=== PATIENT | female | born 1995 | race Caucasian/White ===

== ENCOUNTER 2018-07-01 13:35 | Outpatient (CLI) | payer OTHER ==
[~2018-07-01] VITALS: Ht 157.5 cm; Wt 85.4 kg
[2018-07-01 14:06] VITALS: Ht 157.5 cm; Wt 85.4 kg
[2018-07-01] MEDS ORDERED: PNV11TAB PO (14:06)
[2018-07-01 14:07] VITALS: BP 116/66; PULSE 90; RESP 19
--- NOTE | 2018-07-01 16:47 | TRIAGE ---
OB Triage Datetime Report Generated by CPN: 07/01/2018 16:47 Datetime: 07/01/2018 15:56 Labor Evaluation Frequency: irreg Monitor Mode: External Duration (sec)2399: 50-80 Quality: Mild Pattern: Normal: <= 5 Contractions in 10 Minutes Resting Tone [place]: Relaxed Heart Rate FHR Baseline Rate: 130 Monitor Mode: External US FHR Baseline Changes: No Baseline Change Variability: Moderate 6-25 bpm Accelerations: 15X15 Decelerations: None Category: Category I Datetime: 07/01/2018 14:32 Vaginal Exam Dilatation (cms): 0.0 Effacement (%): 0 Station: -3 Exam By: Epifanio GRADY Datetime: 07/01/2018 14:18 Labor Evaluation Frequency: OCCAS Monitor Mode: External Duration (sec)2399: 100 Quality: Mild Pattern: Normal: <= 5 Contractions in 10 Minutes Resting Tone [place]: Relaxed Heart Rate FHR Baseline Rate: 140 Monitor Mode: External US Variability: Moderate 6-25 bpm Accelerations: 15X15 Decelerations: None Category: Category I Datetime: 07/01/2018 14:17 Assessment Type: Triage Maternal Assessment Level of Consciousness: Fully Conscious DTR's/Clonus: DTRs 2+; No Clonus Headache: Denies Blurred Vision: No Respiratory Effort: Unlabored; Regular Rhythm; Equal Expansion Breath Sounds, Left: Clear and Equal Breath Sounds, Right: Clear and Equal Nausea/Vomiting: Denies RUQ Epigastric Pain: Denies Lower Extremities Edema: None Degree: None Upper Extremities Edema: None Degree: None Facial Edema: None Fall Risk Assessment History of Falling: (0) No Secondary Diagnosis: (0) No Ambulatory Aid: (0) Bedrest/Nurse Assist IV Therapy: (0) No Gait: (0) Normal/Bedrest/Immobile Mental Status: (0) Oriented to Own Ability Fall Score: 0 Fall Risk Score Definition: No Risk: No action required Datetime: 07/01/2018 14:16 EGA: 38.2 Datetime: 07/01/2018 14:15 Time of Arrival: 07/01/2018 13:27 Arrived By: Ambulatory Arrived From: Home Chief Complaint: UC'S Movement: Present Contractions: Irregular Time Contractions Began: 07/01/2018 00:00 Rupture of Membranes: Denies Vaginal Bleeding: None Vaginal Discharge: Denies Recent Sexual Intercouse: Denies Abdominal Trauma: Not Applicable Patient Complaints: Contractions; Cramping Time Provider Notified: 07/01/2018 15:25 Provider Notified: DR MENDOZA Initial Plan: NST BPP EFW AND ROM+
--- NOTE | 2018-07-01 19:38 | PN ---
Triage Information Date/Time 07/01/2018 Reason for visit: Weeks of Gestation 38 weeks and 2 days /Para 1 para 0 Diabetes: none Hypertention: none Additional information 22-year-old G1, P0 with IUP at 38 weeks and 2 days presented with complaint of leaking of fluid denies any contractions or vaginal bleeding. Denies any complication during her course. Objective Vital Signs Date Temp Pulse Resp B/P (MAP) Pulse Ox O2 O2 Flow FiO2 Time Delivery Rate 07/01/18 98.5 90 19 116/66 Room Air 14:07 (83) Heart Rate: 130's Heart Rate Comments Category 1 Contractions: None Exam General appearance: Alert and oriented x4 does not appear to be in any acute distress Abdomen: Soft, gravid, fundal height consider gestational age NST: Category 1 BPP: 8/8 ROSALINO: 12.2 Estimated weight: 3818.2 Results/Medications Results 24 hrs Laboratory Tests Test 07/01/18 14:30 Membranes Rupture NEGATIVE Disposition: Discharge Assessment/Plan IUP at 38 weeks and 2 days No evidence of premature rupture membrane No evidence of labor NST: reactive, BPP reassuring, NST for the most part reassuring. DC home Follow up in 2 days for repeat NST. SHIRA CAVANAUGH MD July 01, 2018 19:38
== END 2018-07-01 16:38 | disposition home or self-care (01) ==
LOC: OBT 13:35 → L-D 13:36 → OBT 16:38
PROVIDERS: ATTEND Obstetrics & Gynecology
DX: O42.92 Full-term premature rupture of membranes, unspecified as to length of time between rupture and onset of labor (principal); Z3A.38 38 weeks gestation of pregnancy
CPT/HCPCS: 76815; 76818; 84112; Z7500; G0463

== ENCOUNTER 2018-07-03 15:50 | Outpatient (CLI) | payer OTHER ==
[~2018-07-03] VITALS: Ht 157.5 cm; Wt 86.9 kg
[~2018-07-03 15:50] MED LIST: PNV11TAB PO
[2018-07-03 15:54] VITALS: Ht 157.5 cm; Wt 86.9 kg
[2018-07-03 15:55] VITALS: BP 135/71
--- NOTE | 2018-07-03 17:44 | TRIAGE ---
OB Triage Datetime Report Generated by CPN: 07/03/2018 17:44 Datetime: 07/03/2018 17:29 Time of Arrival: 07/03/2018 15:40 EGA: 38.4 Arrived By: Ambulatory Arrived From: Home Chief Complaint: nsat bpp f/up Movement: Present Contractions: Denies/Absent Rupture of Membranes: Denies Vaginal Bleeding: None Vaginal Discharge: Denies Recent Sexual Intercouse: Denies Abdominal Trauma: Not Applicable Patient Complaints: None Time Provider Notified: 07/03/2018 17:30 Provider Notified: dr. price Initial Plan: nst bpp Datetime: 07/03/2018 16:36 Vaginal Exam Dilatation (cms): 1.0 Effacement (%): 60 Station: -3 Exam By: Kristopher PAUL Datetime: 07/03/2018 16:20 Comments: back on monitor Datetime: 07/03/2018 16:13 Comments: us at bedside Datetime: 07/03/2018 16:00 Stage of : OB Triage Assessment Type: Triage Maternal Assessment Level of Consciousness: Fully Conscious DTR's/Clonus: DTRs 2+; No Clonus Headache: Denies Blurred Vision: No Respiratory Effort: Unlabored; Regular Rhythm; Equal Expansion Breath Sounds, Left: Clear and Equal Breath Sounds, Right: Clear and Equal Nausea/Vomiting: Denies RUQ Epigastric Pain: Denies Lower Extremities Edema: None Degree: None Upper Extremities Edema: None Degree: None Facial Edema: None Fall Risk Assessment History of Falling: (0) No Secondary Diagnosis: (0) No Ambulatory Aid: (0) Bedrest/Nurse Assist IV Therapy: (0) No Gait: (0) Normal/Bedrest/Immobile Mental Status: (0) Oriented to Own Ability Fall Score: 0 Fall Risk Score Definition: No Risk: No action required Labor Evaluation Monitor Mode: External Heart Rate Monitor Mode: External US Pain Assessment Pain Scale: 0 Pain Presence: None/Denies Pain Type: N/A Datetime: 07/01/2018 16:47 Time of Arrival: 07/03/2018 15:40 EGA: 38.4 Arrived By: Ambulatory Arrived From: Home Chief Complaint: WAS HERE FOR F/UP Movement: Present Contractions: Denies/Absent Rupture of Membranes: Denies Vaginal Bleeding: None Vaginal Discharge: Denies Recent Sexual Intercouse: Denies Abdominal Trauma: Not Applicable Patient Complaints: Other Initial Plan: EFM X2, Datetime: 07/01/2018 14:17 Fall Score: 0 Fall Risk Score Definition: No Risk: No action required Datetime: 07/01/2018 14:16 EGA: 38.2
--- NOTE | 2018-07-04 12:56 | PN ---
Triage Information Date/Time Reason for visit: Uterine contractions Weeks of Gestation 22-year-old 1 para 0 at 38 weeks and 4 days of gestation with estimated date of delivery July 13, 2018 Patient presents with chief complaint of uterine contractions She reports positive movement, denies vaginal bleeding or leaking fluid /Para 1 para 0 Diabetes: none Hypertention: none Objective Vital Signs Date Temp Pulse Resp B/P (MAP) Pulse Ox O2 O2 Flow FiO2 Time Delivery Rate 07/03/18 98.1 135/71 15:55 (92) Heart Rate: 140's Heart Rate Comments heart rate tracing category 1 Exam Cervix 1 cm/thick/-3 per nurse Results/Medications Imaging Results PROCEDURE: US OB biophysical profile. CLINICAL INDICATION: decreased movements, contractions TECHNIQUE: Multiple sonographic images of the pelvis were obtained. The images were reviewed on a PACS workstation. COMPARISON: US PELVIS 07/01/2018 FINDINGS: There is a single live intrauterine gestation. Cardiac activity is present with 142 beats per minute. There is a vertex presentation. The placenta is fundal. There is no evidence of placental abruption. ROSALINO = 14.5 cm. Biophysical profile: movement 2/2 tone 2/2. breathing 2/2 ROSALINO 2/2 Total 09/30 RPTAT: AA . IMPRESSION: Normal biophysical profile. . .Joselito Back MD, Date Time Electronically viewed and signed by .Joselito Back MD, on 07/03/2018 16:33 .S/ CC: DULCE MENDOZA MD [phone] Disposition: Discharge Assessment/Plan kick count instructions were given Labor precautions were given Patient counseled to follow-up with her own PRIMARY CARE NURSE PRACTITIONER in 1 to 2 days JORDI FLORES MD July 04, 2018 12:56
== END 2018-07-03 17:35 | disposition home or self-care (01) ==
LOC: OBT 15:50 → L-D 15:50 → OBT 17:35
PROVIDERS: ATTEND Obstetrics & Gynecology
DX: O62.9 Abnormality of forces of labor, unspecified (principal); Z3A.38 38 weeks gestation of pregnancy
CPT/HCPCS: 76818; Z7500; G0463

== ENCOUNTER 2018-07-08 17:29 | Inpatient (IN) | payer OTHER ==
[~2018-07-08] VITALS: Ht 157.5 cm; Wt 85.8 kg
[~2018-07-08 17:29] MED LIST changes: +OXYTOCIN 30 UNITS/LR 500 ML BAG IV ONE
[2018-07-08 18:15] VITALS: BP 112/64; PULSE 82; RESP 18; Ht 157.5 cm; Wt 85.8 kg
[2018-07-08] MEDS ORDERED: OXYTOCIN 30 UNITS/LR 500 ML IV PRN (18:30)
[2018-07-08] MEDS ORDERED: CEFAZOLIN 2 GM/50 ML (PMX) 50 ML IVPB SCH (18:30)
[2018-07-08] MEDS ORDERED: CARBOPROST 250 MCG INJ IM PRN (18:30)
[2018-07-08] MEDS ORDERED: METHYLERGONOVINE 0.2 MG INJ IM PRN (18:30)
[2018-07-08] MEDS ORDERED: OXYTOCIN 30 UNITS/LR 500 ML IV SCH ×2 (18:30→23:36)
[2018-07-08] MEDS ORDERED: MISOPROSTOL 200 MCG TAB PR PRN (18:30)
[2018-07-08] MEDS: LACTATED RINGER'S 1,000 ML IV SCH ×3 (18:47→23:23)
--- NOTE | 2018-07-08 18:59 | PREOPHP ---
DATE OF ADMISSION: 07/08/2018 HISTORY OF PRESENT ILLNESS: Ms. Brandi Dave is a 22-year-old 1, para 0, EDC 07/13/2018, intrauterine at 39 weeks gestational age, was seen in the clinic today complaining of decr eased movement. She was sent to the [facility] for delivery. Her fetus has a suspected right-sided aortic arch and it was recommended for the fetus to have a curtain roller assembler with possible cardiac consultation after delivery. I spoke with Dr. Menezes, who is a curtain roller assembler and he is aware. After explaining the risks, benefits and alternatives, the patient desires an elective leonel arean delivery, maternal request. Her care took place at [facility]. PAST MEDICAL HISTORY: None. MEDICATIONS: vitamins. PAST SURGICAL HISTORY: None. OBSTETRIC HISTORY: Primigravid. GYNECOLOGIC HISTORY: 14, regular 3 to 4 days. Denies any sexually transmitted infections. Sexually active with 1 partner. SOCIAL HISTORY: Denies any smoking, drugs or alcohol. FAMILY HISTORY: None. REVIEW OF SYSTEMS: All within normal except history of present illness. PHYSICAL EXAMINATION: HEENT: Within normal. LUNGS: CTA bilateral. CARDIOVASCULAR: S1, S2, regular rhythm. ABDOMEN: Gravid, nontender. Negative CVA bilateral. EXTREMITIES: Negative. No calf tenderness. PELVIC: Vaginal exam deferred. heart tracing category 1. Fonda: Occasional contractions, H a nd H 13.8/40.6. ASSESSMENT: Intrauterine at 39 weeks gestational age with decreased movement. Fetus with suspected right-sided aortic arch, desires elective primary delivery, maternal request . PLAN: Consent for a primary . Risks, benefits and alternatives explained. All questions w ere answered. Dictated By: DULCE MENDOZA MD ME/NTS Conf#: [id number] DID#: [id number] CC: DULCE MENDOZA MD;*EndCC*
[2018-07-08] MEDS ORDERED: morphine SULFATE/PF (10 MG/10 ML) INJ ONE (19:20)
[2018-07-08] MEDS ORDERED: OXYTOCIN 10 UNIT INJ ONE (19:21)
[2018-07-08] MEDS ORDERED: ONDANSETRON 4 MG INJ ONE (19:21)
--- NOTE | 2018-07-08 19:44 | PREAC ---
Date/Time of Note Date/Time of Note DATE: 07/08/18 TIME: 19:42 Anesthesia Eval and Record Evaluation Time Pre-Procedure Interview DATE: 07/08/18 TIME: 19:42 Age 22 Sex female NPO: 8 hrs Preoperative diagnosis IUP Planned procedure Csection Past Medical History Past Medical History: Includes GI: Morbid obesity Surgery & Anesthesia Issues No known issue Meds Anticoagulation: No Beta Jessica within 24 hr: No Reason Beta Jessica not given: Pt. not on B-Jessica Reported Medications [id number] ( 19) 1 Each Tablet, 1 TAB PO DAILY, TAB 07/01/18 Current Medications Lactated Ringer's 1,000 ml @ 125 mls/hr Q8H IV Last administered on 07/08/18at 18:48; Admin Dose 125 MLS/HR; Start 07/08/18 at 18:12 Cefazolin Sodium/ Dextrose 50 ml @ 100 mls/hr ONCE IVPB ; Start 07/08/18 at 18:30 Oxytocin/Lactated Ringer's 500 ml @ 125 mls/hr POST IV ; Start 07/08/18 at 18:30 Oxytocin/Lactated Ringer's 500 ml @ 0 mls/hr ONCE PRN IV .VAGINAL BLEEDING; Start 07/08/18 at 18:30 Methylergonovine Maleate (Methergine) 0.2 mg ONCE PRN IM .VAGINAL BLEEDING; Start 07/08/18 at 18:30 Carboprost Tromethamine (Hemabate) 250 mcg ONCE PRN IM .VAGINAL BLEEDING; Start 07/08/18 at 18:30 Misoprostol (Cytotec) 1,000 mcg ONCE PRN VT .VAGINAL BLEEDING; Start 07/08/18 at 18:30 Meds reviewed: Yes Allergies Coded Allergies: No Known Allergy (Unverified , 07/01/18) Allergies Reviewed: Yes Labs/Studies Labs Reviewed: Reviewed by anesthesiologist Result Diagram: 07/08/18 1800 Laboratory Tests 07/08/18 18:00 Blood Bank Test 07/08/18 18:00 Antibody Screen NEGATIVE Blood Type O POSITIVE Rh Immune Globulin Candidate NO test: Positive Studies: ECG Pre-procedure Exam Last vitals Vital Signs Date Temp Pulse Resp B/P (MAP) Pulse Ox O2 O2 Flow FiO2 Time Delivery Rate 07/08/18 98.6 82 18 112/64 Room Air 18:15 (80) Airway: Adequate mouth opening, Adequate thyromental dist Mallampati: Mallampati II Teeth: Normal Lung: Normal Heart: Normal ASA Physical Status ASA physical status: 2 Emergency: None Planned Anesthetic Neuraxial: Spinal Planned Pain Management Sub-arachniod narcotics, Parenteral pain med Pre-operative Attestations Prior to commencing anesthesia and surgery, the patient was re-evaluated, there was verification of: *The patient's identity *The results of appropriate recent lab work and preoperative vital signs *The above evaluation not changing prior to induction *Anesthetic plan, risk benefits, alternative and complications discussed with patient/family; questions answered; patient/family understands, accepts and wishes to proceed. LIZ FAUST MD July 08, 2018 19:44
[2018-07-08] MEDS ORDERED: GLYCOPYRROLATE 0.4 MG INJ ONE (20:07)
[2018-07-08] MEDS ORDERED: METOCLOPRAMIDE 10 MG INJ ONE (20:08)
[2018-07-08] MEDS ORDERED: PHENYLephrine 10 MG INJ ONE (20:19)
[2018-07-08] MEDS ORDERED: NALOXONE (0.4 MG/ML) INJ IV PRN (20:30)
[2018-07-08] MEDS ORDERED: morphine 2 MG INJ IV PRN (20:30)
[2018-07-08] MEDS ORDERED: ONDANSETRON 4 MG INJ IV PRN (20:30)
[2018-07-08] MEDS ORDERED: DIPHENHYDRAMINE 50 MG INJ IV PRN (20:30)
--- NOTE | 2018-07-08 20:33 | PAC ---
Date/Time of Note Date/Time of Note DATE: 07/08/18 TIME: 20:32 Post-Anesthesia Notes Post-Anesthesia Note Last documented vital signs Vital Signs Date Temp Pulse Resp B/P (MAP) Pulse Ox O2 O2 Flow FiO2 Time Delivery Rate 07/08/18 98.6 82 18 112/64 Room Air 18:15 (80) Activity: WNL Respiratory function: WNL Cardiovascular function: WNL Mental status: Baseline Pain reasonably controlled: Yes Hydration appropriate: Yes Nausea/Vomiting absent: Yes Comments BP:126/67, P:88, Spo2:100%, T:98,8 LIZ FAUST MD July 08, 2018 20:33
[2018-07-08] MEDS: KETOROLAC 30 MG INJ IV PRN (21:17)
[2018-07-08 23:00] VITALS: BP 119/57; PULSE 74; RESP 18
--- NOTE | 2018-07-08 23:36 | OPPN ---
Date/Time of Note Date/Time of Note DATE: 07/08/18 TIME: 23:33 Operative Report Planned Procedure Procedure date July 08, 2018 Procedure(s) primary low transverse CD Performed by see signature line Slime Plant Operator: CESAR LAZCANO MD 2nd Slime Plant Operator none Anesthesiologist: LIZ FAUST MD Pre-procedure diagnosis Intrauterine at 39 weeks gestational age with decreased movement. Fetus with suspected right-sided aortic arch, desires elective primary delivery, maternal request. [id number] Anesthesia Type: Hunxx9o spinal Post-Procedure Post-procedure diagnosis same Findings a viable male 4,105 grams, 8/9. X 1 cord around neck. normal uterus, tubes and ovaries Estimated Blood Loss: 500 - 600 mls (500) Specimen(s) none Grafts/Implant(s) none Complication(s) none DULCE MENDOZA MD July 08, 2018 23:36
[2018-07-09] MEDS ORDERED: METHYLERGONOVINE 0.2 MG INJ IM PRN
[2018-07-09] MEDS ORDERED: CARBOPROST 250 MCG INJ IM PRN
[2018-07-09] MEDS ORDERED: NACL 0.9% 3 ML SYG IV SCH
[2018-07-09] MEDS ORDERED: OXYTOCIN 30 UNITS/LR 500 ML IV PRN
[2018-07-09] MEDS ORDERED: CEFAZOLIN 2 GM/50 ML (PMX) 50 ML IVPB ONE
[2018-07-09] MEDS ORDERED: MISOPROSTOL 200 MCG TAB PR PRN
[2018-07-09] MEDS: IBUPROFEN 600 MG TAB PO SCH (00:34)
[2018-07-09 04:49] VITALS: BP 106/55; PULSE 70; RESP 18
[2018-07-09] MEDS: LANOLIN HPA 1 PKT TOP PRN (07:11)
[2018-07-09] MEDS: KETOROLAC 30 MG INJ IV PRN ×3 (07:43→19:34)
[2018-07-09 08:00] VITALS: BP 87/53; PULSE 81; RESP 20
[2018-07-09] MEDS: LACTATED RINGER'S 1,000 ML IV SCH (09:46)
--- NOTE | 2018-07-09 11:35 | QN ---
Documentation Comment progress note pod 1 patient seen and evaluated no complaints vs stable afebrile ab dressing clean/dry no distention extremity no edema no calf tenderness a/ sp cd pod 1 stable afebrile p/ iron supplement repeat cbc in am DULCE MENDOZA MD July 09, 2018 11:35
--- NOTE | 2018-07-09 12:17 | OPR ---
DATE OF OPERATION: 07/08/2018 PRIMARY DIAGNOSES: 1. Intrauterine at 39 weeks gestational age with decreased movement. 2. Fetus with suspected right-sided aortic arch. 3. Desires elective primary delivery, maternal request. POSTOPERATIVE DIAGNOSES: 1. Intrauterine at 39 weeks gestational age with decreased movement. 2. Fetus with suspected right-sided aortic arch. 3. Desires elective primary delivery, maternal request. PROCEDURE: Primary low transverse delivery via Pfannenstiel incision. SURGEON: Ron Mendoza MD WORKERS COMPENSATION ADJUSTER: Skyler Sanon MD ANESTHESIA: Spinal. COMPLICATIONS: None. ESTIMATED BLOOD LOSS: 500 mL. FINDINGS: A viable male, Apgars 8 and 9 respectively at one and five minutes, weight 4105 gm x1 cord around the neck. Normal uterus, tubes and ovaries. DESCRIPTION OF PROCEDURE: After explaining the risks, benefits and alternatives to the patient, cons ent signed and charted, the patient was taken to the operating, where spinal anesthesia was found to be adequate. She was then prepared and draped in normal sterile fashion in dorsal supine position wi th a leftward tilt. A Pfannenstiel skin incision was then made with a scalpel and carried to underly ing fascia. The fascia was incised in the midline. Incision was extended laterally with James scisso rs. The superior aspect of the fascial incision was grasped with curved clamps, elevated, and the un derlying rectus muscles dissected off bluntly. Attention was then turned to the inferior aspect of t he incision, which in a similar fashion was grasped, tented up with curved clamps, and the rectus mus cles dissected off bluntly. The rectus muscle was in the midline, peritoneum identified, t ented up, entered sharply with Metzenbaum scissors. The peritoneal incision was extended superiorly and inferiorly with good visualization of the bladder. The bladder blade was then inserted, and the lower uterine segment incised in a transverse fashion with a scalpel. The uterine incision was exten ded laterally. The bladder blade was removed, and the infant's head delivered atraumatically. Nose and mouth were suctioned and cord clamped and cut. The infant was handed off to waiting country printer . The placenta was then removed. The uterus was externally cleared of all clots and debris. The ut erine incision was repaired with 1-0 chromic in a running locked fashion. A second layer of the same suture was used for imbrication, obtaining excellent hemostasis. The uterus was returned to the abd omen. The gutters were cleared of all clots. The peritoneum and rectus abdominis muscles were reapp roximated with 3-0 Vicryl in an interrupted fashion. The fascia was reapproximated with 0 Vicryl in a running fashion. The subcutaneous tissue was reapproximated with 2-0 plain gut in a running fashio n. The skin was closed with absorbable darwin. The patient tolerated the procedure well. All coun ts were correct. The patient was taken to recovery room in stable condition. Dictated By: RON PERRY/CLARE Conf#: [id number] DID#: [id number] CC: RON MENDOZA MD;*EndCC*
[2018-07-09] MEDS: FERROUS SULFATE (EC) 325 MG TAB PO SCH ×2 (14:17→21:34)
[2018-07-09 14:59] VITALS: BP 98/57; PULSE 92; RESP 18
[2018-07-09 16:00] VITALS: BP 92/56; PULSE 83; RESP 19
[2018-07-09] MEDS ORDERED: OXYCODONE/ACETAMINOPHEN (5/325) TAB PO PRN ×2 (19:35)
[2018-07-10] MEDS: LACTATED RINGER'S 1,000 ML IV SCH ×3 (02:12→21:44)
[2018-07-10] MEDS: IBUPROFEN 600 MG TAB PO SCH ×3 (06:12→17:25)
[2018-07-10 08:00] VITALS: BP 112/58; PULSE 86; RESP 16
[2018-07-10] MEDS: FERROUS SULFATE (EC) 325 MG TAB PO SCH ×2 (08:11→22:16)
--- NOTE | 2018-07-10 10:57 | QN ---
Documentation Comment Postop day #2 Status post primary low transverse section Patient stable and afebrile Vital signs stable VS - Last 72 Hours, by Label Date Temp Pulse Resp B/P (MAP) Pulse Ox O2 O2 Flow FiO2 Time Delivery Rate 07/10/18 98.5 86 16 112/58 Room Air 08:00 (76) 07/09/18 99.2 83 19 92/56 (68) 97 Room Air 16:00 07/09/18 99.8 92 18 98/57 (71) 96 14:59 07/09/18 99.0 81 20 87/53 (64) Room Air 08:00 07/09/18 99.0 70 18 106/55 98 Room Air 04:49 (72) 07/08/18 99.0 74 18 119/57 98 Room Air 23:00 (77) 07/08/18 98.6 82 18 112/64 Room Air 18:15 (80) Hematology - 72 Hrs Test 07/08/18 18:00 07/09/18 07:26 07/10/18 07:51 Hematocrit 40.6 % (37.0-47.0) 31.8 % (37.0-47.0) 31.5 % (37.0-47.0) #L L Hemoglobin 13.8 10.7 10.5 g/dl (12.0-16.0) g/dl (12.0-16.0) g/dl (12.0-16.0) #L L Mean Corpuscular 30.2 pg (29.0-33.0) 30.1 30.3 Hemoglobin pg (29.0-33.0) pg (29.0-33.0) Mean Corpuscular 34.0 33.6 33.3 Hemoglobin Concent g/dl (32.0-37.0) g/dl (32.0-37.0) g/dl (32.0-37.0) Mean Corpuscular 88.8 89.3 90.8 Volume fl (72.0-104.0) fl (72.0-104.0) fl (72.0-104.0) Mean Platelet 12.2 fl (7.4-10.4) 12.3 fl (7.4-10.4) 11.8 fl (7.4-10.4) Volume H H H Platelet Count 203 155 156 10^3/UL (140-415) 10^3/UL (140-415) 10^3/UL (140-415) # Red Blood Count 4.57 3.56 3.47 10^6/ul (4.20-5.40) 10^6/ul (4.20-5.40 10^6/ul (4.20-5.40 ) #L ) L Red Cell 13.1 % (11.5-14.5) 13.2 % (11.5-14.5) 13.7 % (11.5-14.5) Distribution Width White Blood Count 12.1 10.8 10.2 10^3/ul (4.8-10.8) 10^3/ul (4.8-10.8) 10^3/ul (4.8-10.8) H Abdomen soft, fundus firm Incision clean,dry,intact Extremities nontender Assessment and plan Please note echo within normal limits Patient stable and doing well Encouraged to ambulate Continue with routine postop care JORDI FLORES MD July 10, 2018 10:57
[2018-07-10 20:10] VITALS: BP 109/55; PULSE 90; RESP 18
[2018-07-10] MEDS: LANOLIN HPA 1 PKT TOP PRN (22:32)
[2018-07-11] MEDS: IBUPROFEN 600 MG TAB PO SCH ×4 (00:35→17:32)
[2018-07-11] MEDS: LACTATED RINGER'S 1,000 ML IV SCH (02:12)
[2018-07-11 04:05] VITALS: BP 114/67; PULSE 94; RESP 18
[2018-07-11 07:55] VITALS: BP 109/68; PULSE 82; RESP 20
[2018-07-11] MEDS: FERROUS SULFATE (EC) 325 MG TAB PO SCH (08:19)
--- NOTE | 2018-07-11 12:48 | QN ---
Documentation Comment POD#3 is stable afebrile tolerates diet No VB +BM +voids VS stable Gen NAD Abd soft NT ND Incision intact --->Discharge with precautions -->Questions answered -->follow up in 2 weeks with provider STEPHANIE ANGELES M.D. July 11, 2018 12:48
--- NOTE | 2018-07-11 12:49 | DS ---
Date/Time of Note Date/Time of Note DATE: 07/11/18 TIME: 12:49 Discharge Summary Admission/Discharge Info Admit Date/Time July 08, 2018 at 17:31 Discharge Date/Time 07/11/2018 Discharge Diagnosis Patient Condition: Good Hospital Course uneventful Home Meds Reported Medications [id number] ( 19) 1 Each Tablet, 1 TAB PO DAILY, TAB 07/01/18 Primary Care Provider Care Physician No Primary STEPHANIE ANGELES M.D. July 11, 2018 12:49
[2018-07-11 16:21] VITALS: BP 118/75; PULSE 81; RESP 18
--- NOTE | 2018-07-12 19:00 | DELSUM ---
Delivery Summary A-C Datetime Report Generated by CPN: 07/12/2018 19:00 DELIVERY PERSONNEL Stenotype Machine Operator: Florence, Pan MATERNAL INFORMATION Delivery Anesthesia: Spinal Medications in Delivery: SEE ANESTHESIA RECORD Delivery QBL (ml): 500 Placenta Cultured: No Maternal Complications: None LABOR SUMMARY EDC: 07/13/2018 00:00 No. Babies in Womb: 1 Attempted: No Labor Anesthesia: None LABOR INFORMATION Reason for Induction: Not Applicable Oxytocin: N/A Group B Beta Strep: Negative Antibiotics # of Doses: ANCEF 2GM X1 Antibiotics Time of Last Dose: 07/08/2018 19:44 Steroids Given: None Reason Steroids Not Administered: Not Applicable MEMBRANES Membranes Rupture Method: Artificial Rupture of Membranes: 07/08/2018 19:55 Length of Rupture (hr): 0.02 Amniotic Fluid Color: Clear Amniotic Fluid Amount: Moderate Amniotic Fluid Odor: None STAGES OF LABOR Stage 3 hr: 0 Stage 3 min: 1 CSECTION DELIVERY Primary Indication: Other Other Primary Indication: RIGHT SIDE AORTIC ARCH WITH VASCULAR RING Secondary Indication: N/A CSection Urgency: Elective CSection Incidence: Primary Labor: No Labor Elective: N/A CSection Incision: Lower Uterine Transverse BABY A INFORMATION Infant Delivery Date/Time: 07/08/2018 19:56 Method of Delivery: Born in Route : No : N/A Forceps: N/A Vacuum Extraction: N/A Shoulder Dystocia : N/A SHOULDER DYSTOCIA BABY A Delivery Date/Time: 07/08/2018 19:56 PRESENTATION/POSITION BABY A Presentation: Cephalic Cephalic Presentation: Vertex Breech Presentation: N/A PLACENTA INFORMATION BABY A Placenta Delivery Time : 07/08/2018 19:57 Placenta Method of Delivery: Manual Removal Placenta Status: Delivered SCORES BABY A Heart Rate 1 min: >100 bpm Resp Effort 1 min: Good Cry Reflex Irritability 1 min: Cough/Sneeze/Pulls Away Muscle Tone 1 min: Active Motion Color 1 min: Blue/Pale Resuscitation Effort 1 min: Tactile Stimulation; Oxygen SCORE 1 MIN: 8 Heart Rate 5 min: >100 bpm Resp Effort 5 min: Good Cry Reflex Irritability 5 min: Cough/Sneeze/Pulls Away Muscle Tone 5 min: Active Motion Color 5 min: Body [place], Extremit Blue Resuscitation Effort 5 min: Tactile Stimulation SCORE 5 MIN: 9 INFANT INFORMATION BABY A Gestational Age at Delivery: 39.2 Gestational Status: Full Term- 39- 40.6 Weeks Infant Outcome : Liveborn Infant Condition : Stable Sex: Male IDENTIFICATION/MEDS BABY A ID Band Number: [id number] ID Band Location: Right Leg; Left Arm Sensor Applied: Yes Sensor Number: [id number] Sensor Location : Cord Clamp Vitamin K Given : Not Given Erythromycin Given: Not Given WEIGHT/LENGTH BABY A Infant Birthweight (gm): 4105 Infant Weight (lb): 9 Weight (oz): 1 Length (in): 20.50 Length (cm): 52.07 CORD INFORMATION BABY A No. Cord Vessels: 3 Nuchal Cord : Around Neck x1, Tight Cord Blood Taken: Yes Banking/Donate Info: NONE Suction: Mouth; Nose ASSESSMENT BABY A Complications: Other Infant Complications- Other: RIGHT AORTIC ARCH WITH VASCULAR RING Physical Findings at Delivery: Within Normal Limits Respirations: Appears Normal Route Service Manager/ALS Called : No Care By: COMPOSITE ASSEMBLER/RT Yann Sy RN Transferred To: Remains with Mother
== END 2018-07-11 18:50 | disposition home or self-care (01) | DRG 788 ==
LOC: OBT 17:29 → L-D 17:31 → PP1 22:48
PROVIDERS: ADMIT Obstetrics & Gynecology; ATTEND Obstetrics & Gynecology
PROC: 10D00Z1 Extraction of Products of Conception, Low, Open Approach (ICD-10-PCS; principal; 2018-07-08 20:00)
DX: O35.8XX0 Maternal care for other (suspected) fetal abnormality and damage, not applicable or unspecified (principal); O36.8130 Decreased fetal movements, third trimester, not applicable or unspecified; O69.81X0 Labor and delivery complicated by cord around neck, without compression, not applicable or unspecified; Z3A.39 39 weeks gestation of pregnancy; Z37.0 Single live birth
CPT/HCPCS: 85025; 85610; 85730; 86592; 86850; 86900; 86901; 99464; J0690; J1885; J2274; J2405; J2590; J2765; J7120